=== PATIENT | female | born 1985 | race Caucasian/White ===

== ENCOUNTER 2017-12-21 19:47 | Emergency (ER) | payer OTHER ==
[~2017-12-21] VITALS: Ht 177.8 cm; Wt 65.6 kg
[~2017-12-21 19:47] MED LIST: CLONAZEPAM0.5 MG PO; FLUOXETINE HCL20 M1 PO; NO HOME MEDS; YAZ1 TABLET PO; no home
[2017-12-21 22:55] VITALS: BP 120/70
== END 2017-12-21 22:55 | disposition home or self-care (01) ==
LOC: EME 19:47
DX: S01.01XA Laceration without foreign body of scalp, initial encounter (principal); W01.198A Fall on same level from slipping, tripping and stumbling with subsequent striking against other object, initial encounter; F10.129 Alcohol abuse with intoxication, unspecified
CPT/HCPCS: 70450; 99281; 99285; J7040